=== PATIENT | female | born 1990 | race Caucasian/White ===

== ENCOUNTER 2021-05-22 08:56 | Observation (INO) ==
[2021-05-22] MEDS ORDERED: SODIUM CHLORIDE 0.9% 1000ML 1,000 ML IV ONE (09:17)
[2021-05-22] MEDS ORDERED: ONDANSETRON 4 MG OD TAB PO STA (09:17)
--- NOTE | 2021-05-22 09:27 | Emergency Department Note ---
History of Present Illness General Chief complaint: Shortness of Breath/Dyspnea Stated complaint: SOB,VOMITING,PT PANICKING Time Seen by Provider: 05/22/21 09:11 Source: patient Mode of arrival: ambulatory Limitations: no limitations History of Present Illness Provider complaint: Body aches, vomiting, concern for blood infection Onset (ago): hour(s) Maximum Pain Intensity: 8 Associated symptoms: + fever/chills, + headaches, + loss of appetite, + malaise, + nausea/vomiting and + shortness of breath Treatments prior to arrival: none This is a 30-year-old female presents emergency department with multiple complaints that all began earlier this morning. Patient states she is most concerned that she has a blood infection. Patient denies ever previously having a blood infection but states "I know about them". Patient states she has subjective fevers and chills, headaches, abdominal pain, body aches, nausea and vomiting which is led to shortness of breath. Patient states she feels movement in her stomach that leads her to believe she may have diarrhea soon in addition. Patient denies any concern for sick contact including Covid or influenza. Patient states she does have a history of hepatitis that has never been treated. Patient states she does use methadone as she has a history of IV drug abuse. Patient states this morning she did use drugs and right after that is when all of her symptoms started. Pt seen during a time of high acuity and national emergency pandemic while wearing PPE. Home Medications Medication Instructions Recorded Confirmed Type methadone 10 mg/5 mL oral solution 62 mg PO DAILY 01/21/20 05/23/21 History Allergies Allergy/AdvReac Type Severity Reaction Status Date / Time No Known Allergies Allergy Verified 05/22/21 11:18 Past Med/Surg History Medical History (Updated 05/23/21 @ 16:55 by Damari Zapata DO) Hepatitis C Heroin addiction IVDU (intravenous drug user) Methamphetamine abuse Surgical History No significant past surgical history Social History Smoking Status: Current every day smoker Cigarettes Per Day: 10; Second Hand Exposure: Yes; Do You Dip or Chew Tobacco: No; Hx Alcohol Use: No Hx Substance Use: Yes (few days ago) Preferred Language: Guamanian Communication Ability: Effective Taxi Dancer Required: No Beliefs That Will Affect Care: None marital status: Single Current Living Situation: Significant Other Current Living Situation Comment: with boyfriend current occupational status: employed Other Information That Helps Us Care for You: No Feels Safe at Home: Yes Safety Concerns: Feels Safe At This Time Assistive Devices: None Review of Systems A total of 10 systems reviewed and were otherwise negative All systems reviewed & are unremarkable except as noted in HPI & below Physical Exam Vital Signs Vital Signs - 24 hr 05/22/21 08:57 05/22/21 09:13 05/22/21 12:07 Temperature 37.3 C Temperature Source Temporal Artery Scan Pulse Rate 136 H Pulse Rate [Finger] 91 H Pulse Rhythm Regular Pulse Rhythm [Finger] Regular Pulse Strength Normal Pulse Strength [Finger] Normal Respiratory Rate 20 20 Respiratory Effort / Characteristics Non-Labored Non-Labored Spontaneous Non-Labored Respiratory Depth Shallow Normal Normal Respiratory Pattern Rapid/Shallow Regular Blood Pressure 117/77 Blood Pressure [Right Arm] 127/91 Blood Pressure Mean 90 Blood Pressure Mean [Right Arm] 103 Blood Pressure Position Sitting Blood Pressure Position [Right Arm] Sitting Pulse Oximetry 100 99 Oxygen Delivery Method Room Air Room Air Room Air Sepsis Recent Fever Within 48 Hours No Sepsis New/Unexplained Change in Mental Status No Sepsis Action Taken by Nursing No Action Required 05/22/21 15:17 05/22/21 16:31 Temperature 37.4 C Temperature Source Axillary Pulse Rate Pulse Rate [Finger] 83 81 Pulse Rhythm Pulse Rhythm [Finger] Regular Regular Pulse Strength Pulse Strength [Finger] Normal Normal Respiratory Rate 16 18 Respiratory Effort / Characteristics Non-Labored Non-Labored Respiratory Depth Normal Normal Respiratory Pattern Blood Pressure Blood Pressure [Right Arm] 97/58 L 101/73 Blood Pressure Mean Blood Pressure Mean [Right Arm] 71 82 Blood Pressure Position Blood Pressure Position [Right Arm] Lying Lying Pulse Oximetry 94 96 Oxygen Delivery Method Room Air Room Air Sepsis Recent Fever Within 48 Hours Sepsis New/Unexplained Change in Mental Status Sepsis Action Taken by Nursing GENERAL: alert, anxious appearing, well nourished, mild distress, holding an emesis bag EYE EXAM: normal conjunctiva, PERRL and EOM's grossly intact OROPHARYNX: no exudate, no erythema, lips, buccal mucosa, and tongue normal and mucous membranes are moist NECK: supple, no nuchal rigidity, no adenopathy, non-tender LUNGS: Clear to auscultation. Normal chest wall mechanics, no w/r/r HEART: no murmurs, S1 normal and S2 normal ABDOMEN: abdomen soft, non-tender, normo-active bowel sounds, no masses, no rebound or guarding. BACK: Back is symmetrical on inspection and there is no deformity, no midline tenderness, no CVA tenderness. SKIN: no rashes and no bruising UPPER EXTREMITIES: upper extremities are grossly normal. FROM, nml pulses b/l. LOWER EXTREMITIES: No pitting edema. FROM, nml pulses b/l. NEURO EXAM: Normal sensorium, cranial nerves II-XII grossly intact, normal speech, no gross weakness of arms, no gross weakness of legs. No ataxia. Gross sensation intact. Course Course 1208: Patient has received 1 L of IV fluids, she is stating she is nauseated but also asking to eat ice chips. Heart rate is improved. Patient states she still feels achy. 1311: Patient states she still feels nauseated. Has received 2 L of IV fluids and did tolerate a few ice chips. Patient states she still feels aching and subjective chills. 1450: Pt states she inject in her neck this am. Small contusion noted along anteriolateral right aspect, no erythema. Nontender to palpation. No evolving mass or cellulitus. I did reexamine her arms and feet, no recent infection sites noted. Discussed disposition and she was in agreement. Administered Medications Enoxaparin Sodium (Enoxaparin Inj 40 Mg/0.4 Ml Syr) 40 mg SQ HS [facility] Stop: 06/21/21 21:59 Last Admin: 05/22/21 23:27 Dose: Not Given Documented by: [id number] Cefepime HCl 2,000 mg/ Syringe 20 mls @ 5 mls/min IV Q8H [facility]; Protocol Stop: 05/24/21 21:59 Last Admin: 05/23/21 14:15 Dose: 5 mls/min Documented by: [id number] Admin: 05/23/21 06:01 Dose: 5 mls/min Documented by: [id number] Admin: 05/22/21 23:27 Dose: 5 mls/min Documented by: [id number] Ibuprofen (Ibuprofen 200 Mg Tab) 400 mg PO QID PRN PRN Reason: headache Stop: 06/21/21 22:19 Last Admin: 05/23/21 07:24 Dose: 400 mg Documented by: [id number] Admin: 05/22/21 23:06 Dose: 400 mg Documented by: [id number] Methadone HCl (Methadone Oral Soln 2 Mg/Ml) [facility] [place]: 06/06/21 08:59 Last Admin: 05/23/21 10:23 Dose: 62 mg Documented by: [id number] Methadone: Patient's Own Controlled Med 3 1 ea N/A [facility] Stop: 06/06/21 08:59 Last Admin: 05/23/21 10:23 Dose: Not Given Documented by: [id number] Discontinued Medications Diphenhydramine HCl (Diphenhydramine 50 Mg/Ml Vial) 12.5 mg IV NOW STA Stop: 05/22/21 12:15 Last Admin: 05/22/21 12:37 Dose: 12.5 mg Documented by: [id number] Sodium Chloride (Nss 1000ml) 1,000 mls @ 999 mls/hr IV .Q1H1M ONE Stop: 05/22/21 10:17 Last Infusion: 05/22/21 15:44 Dose: 0 mls/hr Documented by: [id number] Admin: 05/22/21 09:52 Dose: 999 mls/hr Documented by: [id number] Sodium Chloride (Nss 1000ml) 1,000 mls @ 999 mls/hr IV .Q1H1M [facility] Stop: 05/22/21 13:15 Last Infusion: 05/22/21 15:44 Dose: 0 mls/hr Documented by: [id number] Admin: 05/22/21 12:44 Dose: 999 mls/hr Documented by: [id number] Prochlorperazine (Compazine) 1 mls @ 1 mls/min IV ONE ONE Stop: 05/22/21 12:15 Last Admin: 05/22/21 12:37 Dose: 1 mls/min Documented by: [id number] Cefepime HCl (Maxipime) 2,000 mg in 20 mls @ 5 mls/min IV NOW STA; Protocol Stop: 05/22/21 13:26 Last Admin: 05/22/21 13:45 Dose: 5 mls/min Documented by: [id number] Magnesium Sulfate/Dextrose (Magnesium Sulfate / D5w) 1 gm in 100 mls @ 100 mls/hr IV NOW STA Stop: 05/22/21 14:42 Last Infusion: 05/22/21 16:20 Dose: 100 mls/hr Documented by: [id number] Admin: 05/22/21 14:47 Dose: 100 mls/hr Documented by: [id number] Lactated Ringer's (Lr) 1,000 mls @ 999 mls/hr IV .Q1H1M ONE Stop: 05/22/21 16:24 Last Infusion: 05/22/21 19:59 Dose: 0 mls/hr Documented by: [id number] Infusion: 05/22/21 17:50 Dose: 999 mls/hr Documented by: [id number] Admin: 05/22/21 16:50 Dose: 999 mls/hr Documented by: [id number] Ioversol (Optiray 320 100ml) 95 ml IV ONCE ONE Stop: 05/22/21 16:03 Last Admin: 05/22/21 16:03 Dose: 1 ml Documented by: [id number] Methadone HCl (Methadone Oral Soln 2 Mg/Ml) 58 mg PO NOW ONE Stop: 05/22/21 17:46 Last Admin: 05/22/21 19:19 Dose: 58 mg Documented by: [id number] Ondansetron HCl (Ondansetron 4 Mg Od Tab) 4 mg PO NOW STA Stop: 05/22/21 09:18 Last Admin: 05/22/21 09:29 Dose: 4 mg Documented by: [id number] Ondansetron HCl (Ondansetron Inj 2 Mg/Ml 2 Ml Vial) 4 mg IV NOW STA Stop: 05/22/21 13:20 Last Admin: 05/22/21 13:45 Dose: 4 mg Documented by: [id number] Potassium Chloride (Potassium Chloride Crtab 20 Meq Tabcr) 40 meq PO NOW STA Stop: 05/22/21 13:44 Last Admin: 05/22/21 14:41 Dose: 40 meq Documented by: [id number] Medical Decision Making Differential Diagnosis Differential: Gastroenteritis, Food Borne, Esophageal Perforation, , Electrolyte Abnormality, Dehydration, Intraabdominal Infection, UTI/Pyelonephritis, Bowel Obstruction, Biliary Pathology, amongst other pathology entertained. Medical Records Attestation: I reviewed the patient's medical records. Home Medications Current Medication List: was personally reviewed by me Laboratory Data Attestation: I reviewed the patient's lab results. Result diagrams: 05/23/21 06:32 05/23/21 06:32 Lab Results 05/22/21 05/22/21 05/22/21 Range/Units 09:56 09:56 11:08 WBC 1.79 L (4.8-10.8) K/uL RBC 4.77 (4.2-5.4) M/uL Hgb 14.6 (12.0-16.0) g/dL Hct 42.9 (37-47) % MCV 89.9 (80-100) fL MCH 30.6 (25-34) pg MCHC 34.0 (32-36) g/dL RDW Std Deviation 44.4 (36.4-46.3) fL RDW Coeff of Lui 13.6 (11.5-14.5) % Plt Count 185 (130-400) K/uL MPV 10.5 H (7.4-10.4) fL Immature Gran % (Auto) 0.0 % Neut % (Auto) 90.5 % Lymph % (Auto) 6.7 % Warren % (Auto) 1.1 % Eos % (Auto) 1.1 % Baso % (Auto) 0.6 % Neut # (Auto) 1.62 (1.4-6.5) K/uL Lymph # (Auto) 0.12 L (1.2-3.4) K/uL Warren # (Auto) 0.02 L (0.11-0.59) K/uL Eos # (Auto) 0.02 (0-0.5) K/uL Baso # (Auto) 0.01 (0-0.2) K/uL Immature Gran # (Auto) 0.00 (0.00-0.02) K/uL Sodium 137 (136-145) mmol/L Potassium (3.5-5.1) mmol/L Chloride 107 (98-107) mmol/L Carbon Dioxide 21 (21-32) mmol/L Anion Gap 9.0 (3-11) BUN 9 (7-18) mg/dl Creatinine 1.13 (0.6-1.2) mg/dl Est Cr Clr Drug Dosing 77.2 ml/min Est GFR ( Amer) 76.6 ml/min Est GFR (Non-Af Amer) 66.1 ml/min BUN/Creatinine Ratio 8.3 L (10-20) Glucose 101 H (70-99) mg/dl Lactate (0.4-2.0) mmol/L Calcium 9.3 (8.5-10.1) mg/dl Magnesium (1.8-2.4) mg/dl Total Bilirubin 1.3 H (0.2-1) mg/dl AST (15-37) U/L ALT 30 (12-78) U/L Alkaline Phosphatase 120 H (45-117) U/L Troponin I < 0.015 (0-0.045) ng/ml Total Protein 7.4 (6.4-8.2) gm/dl Albumin 3.3 L (3.4-5.0) gm/dl Globulin 4.1 H (2.5-4.0) gm/dl Albumin/Globulin Ratio 0.8 L (0.9-2) Lipase 52 L (73-393) U/L Procalcitonin 28.96 H (0-0.5) ng/ml TSH 1.670 (0.300-4.500) uIu/ml HCG, Qual (Negative) Nasal Screen MRSA (PCR) (Negative) Ethyl Alcohol mg/dL (0-3) mg/dl Lyme Disease IgG Ab (Negative) Lyme Disease IgM Ab (Negative) SARS-CoV-2 (PCR) (Negative) Monoscreen (Negative) HIV 1&2 Ab/P24 Ag 4thGn (Neg) Influenza Type A (PCR) (Neg) Influenza Type B (PCR) (Neg) RSV (RT-PCR) (Neg) 05/22/21 05/22/21 05/22/21 Range/Units 11:08 11:08 12:54 WBC (4.8-10.8) K/uL RBC (4.2-5.4) M/uL Hgb (12.0-16.0) g/dL Hct (37-47) % MCV (80-100) fL MCH (25-34) pg MCHC (32-36) g/dL RDW Std Deviation (36.4-46.3) fL RDW Coeff of Lui (11.5-14.5) % Plt Count (130-400) K/uL MPV (7.4-10.4) fL Immature Gran % (Auto) % Neut % (Auto) % Lymph % (Auto) % Warren % (Auto) % Eos % (Auto) % Baso % (Auto) % Neut # (Auto) (1.4-6.5) K/uL Lymph # (Auto) (1.2-3.4) K/uL Warren # (Auto) (0.11-0.59) K/uL Eos # (Auto) (0-0.5) K/uL Baso # (Auto) (0-0.2) K/uL Immature Gran # (Auto) (0.00-0.02) K/uL Sodium (136-145) mmol/L Potassium 2.6 L (3.5-5.1) mmol/L Chloride (98-107) mmol/L Carbon Dioxide (21-32) mmol/L Anion Gap (3-11) BUN (7-18) mg/dl Creatinine (0.6-1.2) mg/dl Est Cr Clr Drug Dosing ml/min Est GFR ( Amer) ml/min Est GFR (Non-Af Amer) ml/min BUN/Creatinine Ratio (10-20) Glucose (70-99) mg/dl Lactate (0.4-2.0) mmol/L Calcium (8.5-10.1) mg/dl Magnesium 1.5 L (1.8-2.4) mg/dl Total Bilirubin (0.2-1) mg/dl AST 45 H (15-37) U/L ALT (12-78) U/L Alkaline Phosphatase (45-117) U/L Troponin I (0-0.045) ng/ml Total Protein (6.4-8.2) gm/dl Albumin (3.4-5.0) gm/dl Globulin (2.5-4.0) gm/dl Albumin/Globulin Ratio (0.9-2) Lipase (73-393) U/L Procalcitonin (0-0.5) ng/ml TSH (0.300-4.500) uIu/ml HCG, Qual (Negative) Nasal Screen MRSA (PCR) (Negative) Ethyl Alcohol mg/dL < 3.0 (0-3) mg/dl Lyme Disease IgG Ab Negative (Negative) Lyme Disease IgM Ab Negative (Negative) SARS-CoV-2 (PCR) (Negative) Monoscreen Negative (Negative) HIV 1&2 Ab/P24 Ag 4thGn (Neg) Influenza Type A (PCR) (Neg) Influenza Type B (PCR) (Neg) RSV (RT-PCR) (Neg) 05/22/21 05/22/21 05/22/21 Range/Units 13:01 14:40 14:40 WBC (4.8-10.8) K/uL RBC (4.2-5.4) M/uL Hgb (12.0-16.0) g/dL Hct (37-47) % MCV (80-100) fL MCH (25-34) pg MCHC (32-36) g/dL RDW Std Deviation (36.4-46.3) fL RDW Coeff of Lui (11.5-14.5) % Plt Count (130-400) K/uL MPV (7.4-10.4) fL Immature Gran % (Auto) % Neut % (Auto) % Lymph % (Auto) % Warren % (Auto) % Eos % (Auto) % Baso % (Auto) % Neut # (Auto) (1.4-6.5) K/uL Lymph # (Auto) (1.2-3.4) K/uL Warren # (Auto) (0.11-0.59) K/uL Eos # (Auto) (0-0.5) K/uL Baso # (Auto) (0-0.2) K/uL Immature Gran # (Auto) (0.00-0.02) K/uL Sodium (136-145) mmol/L Potassium (3.5-5.1) mmol/L Chloride (98-107) mmol/L Carbon Dioxide (21-32) mmol/L Anion Gap (3-11) BUN (7-18) mg/dl Creatinine (0.6-1.2) mg/dl Est Cr Clr Drug Dosing ml/min Est GFR ( Amer) ml/min Est GFR (Non-Af Amer) ml/min BUN/Creatinine Ratio (10-20) Glucose (70-99) mg/dl Lactate (0.4-2.0) mmol/L Calcium (8.5-10.1) mg/dl Magnesium (1.8-2.4) mg/dl Total Bilirubin (0.2-1) mg/dl AST (15-37) U/L ALT (12-78) U/L Alkaline Phosphatase (45-117) U/L Troponin I (0-0.045) ng/ml Total Protein (6.4-8.2) gm/dl Albumin (3.4-5.0) gm/dl Globulin (2.5-4.0) gm/dl Albumin/Globulin Ratio (0.9-2) Lipase (73-393) U/L Procalcitonin (0-0.5) ng/ml TSH (0.300-4.500) uIu/ml HCG, Qual Negative (Negative) Nasal Screen MRSA (PCR) Negative (Negative) Ethyl Alcohol mg/dL (0-3) mg/dl Lyme Disease IgG Ab (Negative) Lyme Disease IgM Ab (Negative) SARS-CoV-2 (PCR) NEGATIVE (Negative) Monoscreen (Negative) HIV 1&2 Ab/P24 Ag 4thGn (Neg) Influenza Type A (PCR) Negative (Neg) Influenza Type B (PCR) Negative (Neg) RSV (RT-PCR) Negative (Neg) 05/22/21 05/22/21 Range/Units 18:03 18:04 WBC (4.8-10.8) K/uL RBC (4.2-5.4) M/uL Hgb (12.0-16.0) g/dL Hct (37-47) % MCV (80-100) fL MCH (25-34) pg MCHC (32-36) g/dL RDW Std Deviation (36.4-46.3) fL RDW Coeff of Lui (11.5-14.5) % Plt Count (130-400) K/uL MPV (7.4-10.4) fL Immature Gran % (Auto) % Neut % (Auto) % Lymph % (Auto) % Warren % (Auto) % Eos % (Auto) % Baso % (Auto) % Neut # (Auto) (1.4-6.5) K/uL Lymph # (Auto) (1.2-3.4) K/uL Warren # (Auto) (0.11-0.59) K/uL Eos # (Auto) (0-0.5) K/uL Baso # (Auto) (0-0.2) K/uL Immature Gran # (Auto) (0.00-0.02) K/uL Sodium (136-145) mmol/L Potassium (3.5-5.1) mmol/L Chloride (98-107) mmol/L Carbon Dioxide (21-32) mmol/L Anion Gap (3-11) BUN (7-18) mg/dl Creatinine (0.6-1.2) mg/dl Est Cr Clr Drug Dosing ml/min Est GFR ( Amer) ml/min Est GFR (Non-Af Amer) ml/min BUN/Creatinine Ratio (10-20) Glucose (70-99) mg/dl Lactate 4.6 H* (0.4-2.0) mmol/L Calcium (8.5-10.1) mg/dl Magnesium (1.8-2.4) mg/dl Total Bilirubin (0.2-1) mg/dl AST (15-37) U/L ALT (12-78) U/L Alkaline Phosphatase (45-117) U/L Troponin I (0-0.045) ng/ml Total Protein (6.4-8.2) gm/dl Albumin (3.4-5.0) gm/dl Globulin (2.5-4.0) gm/dl Albumin/Globulin Ratio (0.9-2) Lipase (73-393) U/L Procalcitonin (0-0.5) ng/ml TSH (0.300-4.500) uIu/ml HCG, Qual (Negative) Nasal Screen MRSA (PCR) (Negative) Ethyl Alcohol mg/dL (0-3) mg/dl Lyme Disease IgG Ab (Negative) Lyme Disease IgM Ab (Negative) SARS-CoV-2 (PCR) (Negative) Monoscreen (Negative) HIV 1&2 Ab/P24 Ag 4thGn Neg (Neg) Influenza Type A (PCR) (Neg) Influenza Type B (PCR) (Neg) RSV (RT-PCR) (Neg) Imaging Data Radiologist's Impression: Chest/Abdomen X-ray 05/22/21 09:18 PA CHEST RADIOGRAPH AND UPRIGHT AND SUPINE AP RADIOGRAPHS OF THE ABDOMEN CLINICAL HISTORY: Nausea and vomiting. COMPARISON STUDY: Chest radiograph and abdominal series June 08, 2013. FINDINGS: Lung volumes are normal. Lungs are clear. No pneumothorax or pleural effusion is noted. Cardiac size is normal. Mediastinal contours are normal. There is no free air. There is no evidence for a bowel obstruction. A moderate amount stool within the colon is noted. IMPRESSION: 1. No free air or evidence of bowel obstruction. 2. Moderate amount of stool within the colon. 3. No acute cardiopulmonary findings. ACT 112: Negative or not required by law. Electronically signed by: Mac Herron M.D. 05/22/2021 11:14 AM Abdomen/Pelvis CT 05/22/21 13:43 CT SCAN OF THE ABDOMEN AND PELVIS WITH IV CONTRAST CLINICAL HISTORY: Nausea and vomiting. Generalized abdominal pain. COMPARISON STUDY: Abdominal radiographs dated 05/22/2021. TECHNIQUE: Following the IV administration of 95 cc of Optiray 320, CT scan of the abdomen and pelvis is performed from the lung bases to the proximal femora. Images are reviewed in the axial, sagittal, and coronal planes. IV contrast was administered without complication. A dose lowering technique was utilized adhering to the principles of ALARA. CT DOSE: 374.79 mGy.cm FINDINGS: Lung bases: The heart is normal in size and without pericardial effusion. The lung bases are clear noting dependent atelectasis. Liver: The contrast-enhanced liver is normal in size, contour, and attenuation. There is no intrahepatic biliary ductal dilatation. The hepatic veins and portal veins are patent. Gallbladder: Unremarkable. Spleen: The spleen is enlarged measuring 15.4 cm in length. Pancreas: Unremarkable. Adrenal glands: Unremarkable. Kidneys: The contrast enhanced kidneys are normal in size and without hydronephrosis. The kidneys enhance symmetrically. A retroaortic left renal vein is incidentally noted. Abdominal vasculature: The abdominal aorta is normal in course and caliber. Bowel: Moderate fecal retention is noted in the left colon. There is no bowel ob struction. The appendix is well-visualized and normal. Peritoneum: There is no intraperitoneal free air or abdominal ascites. There is a fat-containing umbilical hernia. A naval piercing is in place. Lymphadenopathy: None. Pelvic viscera: The bladder and uterus are normal as visualized. Dominant follicles in the left ovary measuring up to 3.0 cm. There is trace nonspecific free fluid in the cul-de-sac. Skeletal structures: No lytic or blastic lesions are seen. IMPRESSION: 1. No acute infectious or inflammatory findings are identified in the abdomen or pelvis. 2. Dominant left ovarian follicles measure up to 3 cm. 3. Trace nonspecific free fluid in the cul-de-sac is likely within physiologic limits. 4. Mild splenomegaly. 5. Moderate fecal retention is noted in the left colon. 6. Additional findings as above. ACT 112: Negative or not required by law. Electronically signed by: Juan Low M.D. 05/22/2021 4:15 PM ECG Data Attestation: I personally reviewed and interpreted this ECG as follows: Indication: + vomiting Rate (beats per minute): 101 Rhythm: + sinus tachycardia ECG Intervals/blocks: + Normal QRS and + Normal QT ECG Dunbar: + Normal ECG ST segments: + Nonspecific ST abnormalities MDM Narrative This is a 30-year-old female who presents due to concern for multiple symptoms. Patient is initial presentation suggestive of possible abnormal reaction to substance abuse or even withdrawal. Due to persistent complaints of nausea and inability to tolerate anything by mouth, labs drawn and sent and patient started on IV fluids. Patient given several medications for nausea over the course of her time in the emergency room without significant improvement per her report. Patient did not have recurrent vomiting, however persistent nausea. Patient was hemodynamically stable and afebrile however did report intermittent chills. Patient was noted to have leukopenia. Additional viral and tickborne labs were added for further evaluation as a precaution. Patient's procalcitonin then resulted significantly elevated. Blood cultures have been drawn as a precaution initially due to her reported IV drug abuse. I did not hear any murmurs to suggest evolving endocarditis. No other focal area of infection noted. Due to persistent reported nausea and intermittent reported diarrhea, patient was sent for CT imaging of the abdomen pelvis. Initial chest x-ray was reassuring. Patient started on empiric antibiotics and MRSA nasal swab added. Case discussed with hospitalist for additional evaluation and management. Patient was given several liters of IV fluids during her time in the emergency room while awaiting various testing. Patient was seen on the day of high volume and high acuity which did delay some of her testing and reporting of results. Patient verbalized understanding of all results and my concern for her condition, she was in agreement with plan for additional inpatient evaluation. An order was placed for continuous cardiac monitoring. The monitor shows a rate of _72_ with _normal sinus_ rhythm. Patient has no family history of endocarditis. Patient was first seen and observation began at 0911 and was necessary in order to evaluate etiology of her condition and attempt to control symptoms. Upon re-evaluation, 6 hours of observation revealed that the patient should be admitted. Discharge time at 1656. Impression & Plan Nausea & vomiting, Leukopenia, Elevated procalcitonin, Substance abuse Discharge Plan Visit Data Chief Complaint: Shortness of Breath/Dyspnea Stated Complaint: SOB,VOMITING,PT PANICKING ED Provider: Damari Zapata Discharge Problem: Nausea & vomiting, Leukopenia, Elevated procalcitonin, Substance abuse Patient Disposition: Admitted As Inpatient Discharge Instructions Interventions: ED Discharge Assessment Last Done: 05/22/21 20:57 Discharge Problem: Nausea & vomiting Qualifiers: Vomiting type: unspecified Qualified Code(s): R11.2 - Nausea with vomiting, unspecified Leukopenia Qualifiers: Leukopenia type: unspecified Qualified Code(s): D72.819 - Decreased white blood cell count, unspecified
[2021-05-22 10:13] LABS: Basophils # (auto) 0.01 K/uL (0-0.2); Basophils % (auto) 0.6 %; Eosinophils # (auto) 0.02 K/uL (0-0.5); Eosinophils % (auto) 1.1 %; Hematocrit (blood only) 42.9 % (37-47); Hemoglobin 14.6 g/dL (12.0-16.0); Lymphocytes # (auto) 0.12 K/uL (1.2-3.4); Lymphocytes % (auto) 6.7 %; Mean Corpuscular Hemoglobin 30.6 pg (25-34); Mean Corpuscular Volume 89.9 fL (80-100); Mean Platelet Volume 10.5 fL (7.4-10.4); Monocytes # (auto) 0.02 K/uL (0.11-0.59); Monocytes % (auto) 1.1 %; Neutrophils # (auto) 1.62 K/uL (1.4-6.5); Neutrophils % (auto) 90.5 %; Platelet Count 185 K/uL (130-400); RDW Coefficient of Variation 13.6 % (11.5-14.5); RDW Standard Deviation 44.4 fL (36.4-46.3); Red Blood Count 4.77 M/uL (4.2-5.4); White Blood Count 1.79 K/uL (4.8-10.8)
[2021-05-22 10:36] LABS: Alanine Aminotransferase 30 U/L (12-78); Albumin Level 3.3 gm/dl (3.4-5.0); BUN Creatinine Ratio 8.3 (10-20); Blood Urea Nitrogen 9 mg/dl (7-18); Calcium 9.3 mg/dl (8.5-10.1); Carbon Dioxide 21 mmol/L (21-32); Chloride 107 mmol/L (98-107); Creatinine Clr Calc Pharmacy 77.2 ml/min; Est GFR (African American) 76.6 ml/min; Est GFR (Non-African American) 66.1 ml/min; Glucose 101 mg/dl (70-99); Lipase 52 U/L (73-393); Sodium 137 mmol/L (136-145)
[2021-05-22 10:44] LABS: Albumin Globulin Ratio 0.8 (0.9-2); Alkaline Phosphatase 120 U/L (45-117); Bilirubin,Total 1.3 mg/dl (0.2-1); Globulin 4.1 gm/dl (2.5-4.0); Total Protein 7.4 gm/dl (6.4-8.2); Troponin I < 0.015 ng/ml (0-0.045)
--- NOTE | 2021-05-22 11:15 | XRay Report ---
PA CHEST RADIOGRAPH AND UPRIGHT AND SUPINE AP RADIOGRAPHS OF THE ABDOMEN CLINICAL HISTORY: Nausea and vomiting. COMPARISON STUDY: Chest radiograph and abdominal series June 08, 2013. FINDINGS: Lung volumes are normal. Lungs are clear. No pneumothorax or pleural effusion is noted. Ca rdiac size is normal. Mediastinal contours are normal. There is no free air. There is no evidence for a bowel obstruction. A moderate amount stool within the colon is noted. IMPRESSION: 1. No free air or evidence of bowel obstruction. 2. Moderate amount of stool within the colon. 3. No acute cardiopulmonary findings. ACT 112: Negative or not required by law. Electronically signed by: Mac Herron M.D. 05/22/2021 11:14 AM
[2021-05-22] MEDS ORDERED: diphenhydrAMINE 50 MG/ML VIAL IV STA (12:14)
[2021-05-22] MEDS ORDERED: PROCHLORPERAZINE 1 ML IV ONE (12:14)
[2021-05-22] MEDS ORDERED: SODIUM CHLORIDE 0.9% 1000ML 1,000 ML IV SCH (12:15)
[2021-05-22 13:12] LABS: Monotest Negative (Negative)
[2021-05-22] MEDS ORDERED: ONDANSETRON INJ 2 MG/ML 2 ML VIAL IV STA (13:19)
[2021-05-22] MEDS ORDERED: CEFEPIME 2,000 MG/20 ML VIAL IV STA (13:23)
[2021-05-22 13:28] LABS: Potassium 2.6 mmol/L (3.5-5.1)
[2021-05-22 13:33] LABS: Magnesium 1.5 mg/dl (1.8-2.4)
[2021-05-22] MEDS ORDERED: POTASSIUM CHLORIDE CRTAB 20 MEQ TABCR PO STA (13:43)
[2021-05-22] MEDS ORDERED: MAGNESIUM SULFATE / D5W 1 GM/100 ML BAG IV STA (13:43)
[2021-05-22 14:39] LABS: Lyme Ab IgG w/WB Rflx Negative (Negative); Lyme Ab IgM w/WB Rflx Negative (Negative)
[2021-05-22 15:22] LABS: Pregnancy Test, Serum Negative (Negative)
[2021-05-22] MEDS ORDERED: LACTATED RINGER'S 1,000 ML IV ONE (15:24)
[2021-05-22] MEDS ORDERED: OPTIRAY 320 100ml IV ONE (16:02)
[2021-05-22 16:16] LABS: Influenza A virus by PCR Negative (Neg); Influenza B virus by PCR Negative (Neg); RSV by PCR Negative (Neg)
--- NOTE | 2021-05-22 16:17 | CT Scan Report ---
CT SCAN OF THE ABDOMEN AND PELVIS WITH IV CONTRAST CLINICAL HISTORY: Nausea and vomiting. Generalized abdominal pain. COMPARISON STUDY: Abdominal radiographs dated 05/22/2021. TECHNIQUE: Following the IV administration of 95 cc of Optiray 320, CT scan of the abdomen and pelvi s is performed from the lung bases to the proximal femora. Images are reviewed in the axial, sagittal , and coronal planes. IV contrast was administered without complication. A dose lowering technique wa s utilized adhering to the principles of ALARA. CT DOSE: 374.79 mGy.cm FINDINGS: Lung bases: The heart is normal in size and without pericardial effusion. The lung bases are clear no ting dependent atelectasis. Liver: The contrast-enhanced liver is normal in size, contour, and attenuation. There is no intrahepa tic biliary ductal dilatation. The hepatic veins and portal veins are patent. Gallbladder: Unremarkable. Spleen: The spleen is enlarged measuring 15.4 cm in length. Pancreas: Unremarkable. Adrenal glands: Unremarkable. Kidneys: The contrast enhanced kidneys are normal in size and without hydronephrosis. The kidneys enh ance symmetrically. A retroaortic left renal vein is incidentally noted. Abdominal vasculature: The abdominal aorta is normal in course and caliber. Bowel: Moderate fecal retention is noted in the left colon. There is no bowel obstruction. The append ix is well-visualized and normal. Peritoneum: There is no intraperitoneal free air or abdominal ascites. There is a fat-containing umbi lical hernia. A naval piercing is in place. Lymphadenopathy: None. Pelvic viscera: The bladder and uterus are normal as visualized. Dominant follicles in the left ovary measuring up to 3.0 cm. There is trace nonspecific free fluid in the cul-de-sac. Skeletal structures: No lytic or blastic lesions are seen. IMPRESSION: 1. No acute infectious or inflammatory findings are identified in the abdomen or pelvis. 2. Dominant left ovarian follicles measure up to 3 cm. 3. Trace nonspecific free fluid in the cul-de-sac is likely within physiologic limits. 4. Mild splenomegaly. 5. Moderate fecal retention is noted in the left colon. 6. Additional findings as above. ACT 112: Negative or not required by law. Electronically signed by: Juan Low M.D. 05/22/2021 4:15 PM
[2021-05-22 16:48] LABS: Amphetamines+Metham, Urine Neg (Neg); Barbiturates, Urine Neg (Neg); Benzodiazepine, Urine Neg (Neg); Cocaine, Urine Neg (Neg); MDMA (Ecstacy), Urine Neg (Neg); Methadone, Urine Pos (Neg); Opiate, Urine Neg (Neg); Phencyclidine, Urine Neg (Neg)
[2021-05-22] MEDS ORDERED: METHADONE ORAL SOLN 2 MG/ML PO ONE (17:45)
--- NOTE | 2021-05-22 18:00 | History & Physical Report ---
Date of Service May 22, 2021 Assessment & Plan (1) Fever: Plan: Fever with nonspecific symptoms, leukopenia Procal is extremely elevated will place on cefepime and will monitor blood cultures. will obtain echo in AM MOnitor blood work. CT abd/pelvis is negative. will obtain CT chest to rule out septic emboli. check HIV. (2) Hepatitis C: Plan: will need to be established with a GI provider or ID. (3) IVDU (intravenous drug user): Plan: WILL RECOMMEND DRUG REHAB FACILITY, (4) Heroin abuse: Plan: obtaining methadone from methadone clinic. will need to call in AM. Plan: dvt: lovenox History of Present Illness Chief Complaint: cotton fever Primary Care Provider: NO PCP This is a 30 yp female with h/o IV drug abuser arrives to ER stating that she has cotton fever. She reports that she recently used IV drugs. She reports she is worried about IV Blood infection as she is worried about the bacteria from "cotton fever". She reports a wide array of symptoms which began today: fever, chills, headaches, abdominal pain, nausea, vomiting which began today. Patient reports she is agreeable to HIV testing. She reports she goes to the [facility] methadone clinic. She wants us to call tomorrow AM as they are open for limited hours during the day. Patient denies any concern for sick contact including Covid or influenza. Patient states she does have a history of hepatitis that has never been treated. Allergies Allergy/AdvReac Type Severity Reaction Status Date / Time No Known Allergies Allergy Verified 05/22/21 11:18 Home Medications Medication Instructions Recorded Confirmed Type methadone 10 mg/5 mL oral solution See Rx Instructions .ROUTE .COMPLEX 01/21/20 05/22/21 History Past Med/Surg History Medical History (Updated 05/22/21 @ 23:18 by Matias Servin) Hepatitis C Heroin addiction IVDU (intravenous drug user) Methamphetamine abuse Surgical History No significant past surgical history Social History Smoking Status: Current every day smoker Cigarettes Per Day: 10; Second Hand Exposure: Yes; Do You Dip or Chew Tobacco: No; Hx Alcohol Use: No Hx Substance Use: Yes (few days ago) Preferred Language: [place]iboutian Communication Ability: Effective Can Vacuum Tester Required: No Beliefs That Will Affect Care: None marital status: Single Current Living Situation: Significant Other Current Living Situation Comment: with boyfriend current occupational status: employed Other Information That Helps Us Care for You: No Feels Safe at Home: Yes Safety Concerns: Feels Safe At This Time Assistive Devices: None Review of Systems Review of Systems: All systems reviewed & are unremarkable except as noted in HPI & below Physical Exam Constitutional: WD/WN, vitals as above Eyes: PERRL, conjunctivae normal, anicteric sclerae ENMT: external ear and nose normal, oropharynx normal Neck: trachea midline, no thyromegaly Respiratory: normal respiratory effort, lungs clear to auscultation Cardiovascular: RRR, no murmur, no edema Gastrointestinal (Abdomen): normal bowel sounds, soft, nontender, no hepatosplenomegaly Skin: no rashes, warm and dry Psychiatric: A+Ox3, euthymic affect Results & Data Results & Data ([facility]) Vital Signs (Past 12 Hours) Vital Signs Temp Pulse Pulse Resp BP BP Pulse Ox 05/22/21 16:31 81 18 101/73 96 05/22/21 15:17 37.4 C 83 16 97/58 L 94 05/22/21 12:07 91 H 20 127/91 99 05/22/21 09:13 37.3 C 136 H 20 117/77 100 PG Care Time/CCT Total # of Minutes Spent Total Time Spent with Patient: Total time spent is greater than 50% in coordination of care (as documented) at patient's floor/unit and/or counseling patient: Coding Level of Care Code 32688 Initial Inpt Care Lvl 2 Diagnoses Fever R50.9 Hepatitis C B19.20 IVDU (intravenous drug user) F19.90 Heroin abuse F11.10
--- NOTE | 2021-05-22 19:10 | CT Scan Report ---
CT SCAN OF THE CHEST WITHOUT IV CONTRAST CLINICAL HISTORY: Infection. IV drug abuse. COMPARISON STUDY: Chest x-ray dated 05/22/2021. TECHNIQUE: CT scan of the thorax was performed from the thoracic inlet to the upper abdomen. Images are reviewed in the axial, sagittal, and coronal planes. IV contrast was not administered for this ex amination as per the referring clinician. A dose lowering technique was utilized adhering to the [facility] of [place]. CT DOSE: 204.03 mGy.cm FINDINGS: Thyroid: Imaged portions of the thyroid gland are normal in size and attenuation. Thoracic aorta: The thoracic aorta is normal in caliber and demonstrates standard 3-vessel arch anato my. Heart: The heart is normal in size and without pericardial effusion. Lungs and pleural spaces: There is no airspace consolidation typical for pneumonia. Dependent atelect asis is seen at the lung bases. The trachea and central airways appear clear. 2 mm right upper lobe p ulmonary nodules seen on images #89 and #102 are of doubtful significance in this age group. Mediastinum: There is no mediastinal lymphadenopathy. Araceli: Not well assessed without IV contrast. Axillae: There is no axillary lymphadenopathy. Upper abdomen: The spleen is mildly enlarged. Nonspecific infiltration is seen on the left adrenal gl and. Partially visualized upper abdominal viscera is otherwise within normal limits. Skeletal structures: No lytic or blastic bony lesions are seen. IMPRESSION: 1. No active disease in the chest. 2. Nonspecific infiltration is seen around the left adrenal gland. Clinical correlation will be requi red. 3. Mild splenomegaly. ACT 112: Negative or not required by law. Electronically signed by: Juan Low M.D. 05/22/2021 7:09 PM
[2021-05-22] MEDS: IBUPROFEN 200 MG TAB PO PRN (23:06)
[2021-05-22] MEDS: ENOXAPARIN INJ 40 MG/0.4 ML SYR SQ SCH (23:27)
[2021-05-22] MEDS: CEFEPIME 2,000 MG in SYRINGE 0 ML IV SCH (23:27)
[2021-05-23] MEDS: CEFEPIME 2,000 MG in SYRINGE 0 ML IV SCH ×3 (06:01→21:15)
[2021-05-23 07:05] LABS: INR 1.3 (0.9-1.1); Prothrombin Time 13.3 Seconds (9.0-12.0)
[2021-05-23] MEDS: IBUPROFEN 200 MG TAB PO PRN ×2 (07:24→21:30)
[2021-05-23 07:41] LABS: Albumin Globulin Ratio 0.8 (0.9-2); Albumin Level 2.9 gm/dl (3.4-5.0); BUN Creatinine Ratio 11.2 (10-20); Bilirubin,Total 1.3 mg/dl (0.2-1); Calcium 8.5 mg/dl (8.5-10.1); Creatinine Clr Calc Pharmacy 81.9 ml/min; Est GFR (African American) 82.8 ml/min; Est GFR (Non-African American) 71.4 ml/min; Globulin 3.7 gm/dl (2.5-4.0); Potassium 3.6 mmol/L (3.5-5.1); Total Protein 6.6 gm/dl (6.4-8.2)
[2021-05-23 07:43] LABS: Basophils # (auto) 0.01 K/uL (0-0.2); Basophils % (auto) 0.1 %; Eosinophils # (auto) 0.01 K/uL (0-0.5); Eosinophils % (auto) 0.1 %; Hematocrit (blood only) 36.7 % (37-47); Hemoglobin 12.4 g/dL (12.0-16.0); Immature Granulocytes # (auto) 0.05 K/uL (0.00-0.02); Immature Granulocytes % (auto) 0.4 %; Lymphocytes # (auto) 0.77 K/uL (1.2-3.4); Lymphocytes % (auto) 5.8 %; Mean Corpuscular Hemoglobin 30.3 pg (25-34); Mean Corpuscular Hgb Conc 33.8 g/dL (32-36); Mean Corpuscular Volume 89.7 fL (80-100); Mean Platelet Volume 10.8 fL (7.4-10.4); Monocytes # (auto) 1.22 K/uL (0.11-0.59); Monocytes % (auto) 9.2 %; Neutrophils # (auto) 11.13 K/uL (1.4-6.5); Neutrophils % (auto) 84.4 %; Platelet Count 146 K/uL (130-400); Red Blood Count 4.09 M/uL (4.2-5.4); White Blood Count 13.19 K/uL (4.8-10.8)
[2021-05-23] MEDS ORDERED: METHADONE ORAL SOLN 2 MG/ML PO SCH (09:00)
[2021-05-23] MEDS: METHADONE SCH (10:23)
[2021-05-23] MEDS: METHADONE ORAL SOLN 2 MG/ML PO SCH (10:23)
--- NOTE | 2021-05-23 12:04 | Electrocardiogram Report ---
Test Reason : Blood Pressure : / mmHG Vent. Rate : 101 BPM Atrial Rate : 101 BPM P-R Int : 126 ms QRS Dur : 090 ms QT Int : 350 ms P-R-T Axes : 072 061 031 degrees QTc Int : 453 ms Sinus tachycardia Possible Left atrial enlargement Borderline ECG When compared with ECG of 07-FEB-2019 11:52, No significant change was found Confirmed by Brandyn Tobin ([id number]) on 05/23/2021 12:03:50 PM Referred By: REFERRED SELF Confirmed By:Brandyn Tobin
[2021-05-23 15:07] LABS: C Reactive Protein 14.7 mg/dl (0-0.29)
--- NOTE | 2021-05-23 20:15 | Hospitalist Progress Note ---
Date of Service May 23, 2021 Assessment & Plan (1) Fever: Plan: Still with concern on bacteremia, given injection drug use, but fortunately nothing on cultures as of now. With severe neck painwhile she and I both suspect it is probably from being very spastic and tight with fevers/chills/vomiting, I do harbor a degree of concern that if she had a bacterial infection could have seeded into her C-spine her musclescheck CPK, if elevated MRI. Otherwise we agreed serial exams, and if not improving MRI. Given high concern on bacteremiacontinue to follow current blood cultures on empiric antibiotics, and repeat cultures today. That said, if her cultures co ntinue to be negative/overall symptoms improved/inflammatory markers trend downthere is an entity on literature search actually known as "cotton fever" that appears to be a severe inflammatory (rather than infectious) response to such an injection. She and I had discussed this even prior to the literature search that it is possible that her body is having a very big inflammatory reaction even with not infectious. (2) Hepatitis C: Plan: will need to be established with a GI provider or ID. (3) IVDU (intravenous drug user): Plan: Continue methadone, following closely at the methadone clinic (4) Heroin abuse: Plan: Pharmacy called and got updated dosedose adjusted Plan: dvt prophylaxis lovenox Admission and Anticipated Discharge Date Admission Date: May 22, 2021 Subjective Feeling better but still overall very bad. Neck and shoulders hurt a lot now, still somewhat shaky and warmbut not the fevers and chills of before. No further nausea and vomiting, overall feels a similar symptom complex to when she was admitted but improved. Denies chest pain cough shortness of breath. Denies any urinary symptoms. Denies diarrhea. No skin lesions. Review of Systems Review of Systems: All systems reviewed & are unremarkable except as noted in HPI & below Physical Exam Physical Exam: In general she is awake and alert oriented, pleasant no distress. HEENT normocephalic atraumatic mucous membranes moist. Cardio is regular without rubs murmurs or gallops. Lungs are clear to auscultation bilaterally no rales rhonchi wheezes good effort. Skin shows no rashes/pallor/icterus. Neuro shows cranial nerves II through XII to be grossly intact, no gross motor or sensory deficits. Musculoskeletal shows her neck and upper thoracic region to be very tender to palpationalthough on clarification and detailed exam, it is all muscular tenderness not bony tenderness. There is no fluctuance. Results & Data Results & Data ([facility]) Vital Signs (Past 12 Hours) Vital Signs Temp Pulse Resp BP Pulse Ox 05/23/21 15:29 97.7 F 68 16 108/71 98 PG Care Time/CCT Total # of Minutes Spent Total Time Spent with Patient: Total time spent is greater than 50% in coordination of care (as documented) at patient's floor/unit and/or counseling patient: Coding Level of Care Code 97799 Subseq Hosp Care Lvl 3 Diagnoses Fever R50.9 Hepatitis C B19.20 IVDU (intravenous drug user) F19.90 Heroin abuse F11.10
[2021-05-23] MEDS: ENOXAPARIN INJ 40 MG/0.4 ML SYR SQ SCH (21:16)
[2021-05-23] MEDS ORDERED: MELATONIN 3 MG TAB PO PRN (21:20)
[2021-05-24 06:30] LABS: Basophils # (auto) 0.02 K/uL (0-0.2); Basophils % (auto) 0.2 %; Eosinophils # (auto) 0.21 K/uL (0-0.5); Eosinophils % (auto) 2.1 %; Hematocrit (blood only) 37.3 % (37-47); Hemoglobin 12.4 g/dL (12.0-16.0); Immature Granulocytes # (auto) 0.02 K/uL (0.00-0.02); Immature Granulocytes % (auto) 0.2 %; Lymphocytes % (auto) 18.2 %; Mean Corpuscular Hemoglobin 30.3 pg (25-34); Mean Corpuscular Hgb Conc 33.2 g/dL (32-36); Mean Corpuscular Volume 91.2 fL (80-100); Monocytes # (auto) 0.82 K/uL (0.11-0.59); Monocytes % (auto) 8.3 %; Neutrophils # (auto) 7.02 K/uL (1.4-6.5); Platelet Count 141 K/uL (130-400); RDW Coefficient of Variation 14.2 % (11.5-14.5); RDW Standard Deviation 47.4 fL (36.4-46.3); Red Blood Count 4.09 M/uL (4.2-5.4); White Blood Count 9.89 K/uL (4.8-10.8)
[2021-05-24] MEDS: CEFEPIME 2,000 MG in SYRINGE 0 ML IV SCH (06:45)
[2021-05-24 07:04] LABS: BUN Creatinine Ratio 9.9 (10-20); Calcium 8.9 mg/dl (8.5-10.1); Creatinine Clr Calc Pharmacy 92.4 ml/min; Est GFR (African American) 95.7 ml/min; Est GFR (Non-African American) 82.6 ml/min; Potassium 3.8 mmol/L (3.5-5.1)
[2021-05-24] MEDS: IBUPROFEN 200 MG TAB PO PRN (09:47)
[2021-05-24] MEDS: METHADONE SCH (09:47)
[2021-05-24] MEDS: METHADONE ORAL SOLN 2 MG/ML PO SCH (09:48)
--- NOTE | 2021-05-24 19:56 | Discharge Summary ---
Date of Service May 24, 2021 Admission HPI Per Admitting Provider This is a 30 yp female with h/o IV drug abuser arrives to ER stating that she has cotton fever. She reports that she recently used IV drugs. She reports she is worried about IV Blood infection as she is worried about the bacteria from "cotton fever". She reports a wide array of symptoms which began today: fever, chills, headaches, abdominal pain, nausea, vomiting which began today. Patient reports she is agreeable to HIV testing. She reports she goes to the [facility] methadone clinic. She wants us to call tomorrow AM as they are open for limited hours during the day. Patient denies any concern for sick contact including Covid or influenza. Patient states she does have a history of hepatitis that has never been treated. Principal Diagnosis Cotton fever (SIRS response to injection drug use through cotton, with no true sepsis/bacteremia) Discharge Exam In general she is awake and alert pleasant no distress. HEENT normocephalic atraumatic mucous membranes moist. Breathing unlabored no accessory muscle use good effort. Skin shows no rashes no pallor or icterus. Neuro without focal deficits. Musculoskeletal shows her cervical and upper thoracic paraspinals and periscapular musculature to be tender and sore, no bony tenderness, exam is fairly similar to yesterday, patient notes probably the soreness is a little better, at least definitely not worse Discharge Data Allergies Allergy/AdvReac Type Severity Reaction Status Date / Time No Known Allergies Allergy Verified 05/22/21 11:18 Consultations 05/22/21 16:56 ED Decision to Admit Stat Ordered Studies 05/22/21 13:43 CT abd pelvis IV con only Stat 05/22/21 17:13 CT chest diagnostic wo con Routine Hospital Course (1) Fever: Initial presentation gave high concern for bacteremia, or even endocarditis. Fortunately her blood cultures from admission continue to be negative, and the repeat cultures from yesterday are showing no growth. Further her inflammatory markers are trending down. She has shown no evidence of a focal bacterial infection, and even the neck and periscapular musculature soreness seems most consistent with her rigors and vomiting, and not consistent with any sort of an infectious myositis (particularly given that her CPK will be very reassuring and she has no bony tenderness)on literature search actually known as "cotton fever" that appears to be a severe inflammatory (rather than infectious) response to such an injection. She and I had discussed this even prior to the literature search that it is quite likely that her body had a very big inflammatory reaction even with no infectious nidus (2) Hepatitis C: will need to be established with a GI provider or ID. Can defer to PCP in this regard (3) IVDU (intravenous drug user): Continue methadone, following closely at the methadone clinic who does counseling through the methadone clinic as well (4) Heroin abuse: On methadone maintenance dvt prophylaxis lovenox Total Time Total Time Spent Total Time Spent (In Minutes): Greater than 30 Discharge Plan Discharge Items Patient Disposition: Home - Self-Care Reason For Visit: FEVER, LIKELY SEPSIS Discharge Diagnosis: cotton fever (see below) Activity: Resume your previous activity Non-emergency contact: Primary Care Provider Call non-emergency contact if: you have any medication questions, your symptoms worsen and your temperature is above 101 Follow-up/Referrals: PCP,NO [Primary Care Provider] - (SPOKE TO PATIENT; SHE MOVED OUT OF AREA FOR AWHILE AND DOESN'T HAVE A CURRENT PCP; HOWEVER, SHE WILL CALL HER OLD ONE TO SEE IF SHE IS ACCEPTING PATIENTS AT THIS TIME.) Diet: Regular Addtl Attending Provider Instructions: Cotton fever -While your symptoms and presentation were very concerning for a bacterial infection/bloodstream infection, fortunately in the end this all appears to have been a massive inflammatory response to cotton, or part of the cotton. -Your inflammatory markers are coming down, your white blood cells have normalized, and your blood cultures are negative for any bacterial growth (the lab will follow the cultures out for a full 5 days, but at this point it is extremely unlikely we will see any late growth, and obviously we will call you if anything shows up) -Should you feel worse symptoms, more pain, or recurrent fever, obviously I would want you back right away, but this seems extremely unlikely to happen at this point time -Have your primary care physician repeat lab work (CBC, procalcitonin, CRP) late this coming week just so that we do see all of the inflammatory markers returned to truly normal. Pending Studies at Discharge: No Stand-Alone Forms: My [facility] [employer], Smoking Cessation Medications and DC Order Prescriptions: Continued methadone 10 mg/5 mL Solution 62 mg PO DAILY RF: 0 Discharge Orders: Discharge Order (Routine); Ordered 05/24/21 Ordered By: Cricket Crystal Admission Data Admit Date/Time: 05/22/21 18:45 Attending Provider: Cricket Crystal Admit Provider: Matias Servin Primary Care Provider: PCP,NO Other Providers: Matias Servin Other Interventions: Discharge Summary Assessment (RN) Last Done: 05/24/21 12:50 Coding Level of Care Code D/C DAY MANAGEMENT >30 MINS Diagnoses Fever R50.9 Hepatitis C B19.20 IVDU (intravenous drug user) F19.90 Heroin abuse F11.10
[2021-05-25 09:16] LABS: Methadone, Ur Metabolite 6480 ng/mL (<100)
[2021-05-25 18:07] LABS: SARS CoV2 RNA(COVID-19) InHosp NEGATIVE (Negative)
== END 2021-05-24 13:42 | disposition home or self-care (01) ==
LOC: ED 08:56 → INTOOBSV 18:45 → SUATTDRO 18:45 → 3E 18:45